=== PATIENT | male | born 1965 | race Caucasian/White ===

== ENCOUNTER 2018-08-15 15:34 | Inpatient (IN) ==
[2018-08-15] MEDS ORDERED: Naloxone 0.4 MG/ML INJ IVP PRN (17:28)
[2018-08-15] MEDS ORDERED: *HR* HYDROcodone/Acet 5/325 mg TABLET PO PRN (17:28)
[2018-08-15] MEDS ORDERED: D5% in Water 1,000 ML IVC PRN (17:30)
[2018-08-15] MEDS ORDERED: Dextrose Gel 15 GM/37.5 ML TUBE PO PRN ×2 (17:30)
[2018-08-15] MEDS ORDERED: *HR* Dextrose 50 % in Water (Syg) 50 ML SYRINGE IVP PRN (17:30)
[2018-08-15] MEDS ORDERED: Lisinopril 20 MG TABLET PO SCH (17:45)
--- NOTE | 2018-08-15 17:52 | Internal Med History&Physical ---
Date of Encounter: 08/15/18 Time of Encounter: 17:47 Internal Medicine - H&P: HPI Chief complaint: diabetic foot ulcer Admitted From: Home Plans for Post Hospital Care: Home History of present illness: Mr. 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 Patient presented to the hospital due to drainage from an infection on his right knee. The patient reports about 1 week about he developed a blister on the anterior aspect of the right knee. This blister has been growing in size during this period of time associated with pain, redness and warmth to touch. Report today the blister started to drain a bloody secretion and her decided to go to the ED to be checked. He denies fever, chills or trauma to the knee. He also report at the stump of the right foot he has seen a serous sanguineous secretion too. Denies chest pain, productive cough, nausea or vomiting. Past Med Surg Social Fam HX - Past Medical History Medical history: diabetes, hypertension Psychiatric history: depression - Past Surgical History Surgical History: no surgical history Additional surgical history: Right TMA. - Social History Smoking Status: Never smoker Smokeless Tobacco Status: No Alcohol use: none Drug use: none - Family History Mother Family Member Ethnicity: Non- Living Status: Hx Family Cardiac Disorders: No Hx Family Respiratory Disorders: No Hx Family Cancer: No Hx Family GI Disorders: No Hx Family Endocrine Disorder: Yes (DM) Hx Family Neuromuscular Disorders: No Hx Family Neurologic Disorders: No Hx Family HEENT Disorders: No Hx Family Autoimmune Disorders: No Father Living Status: Hx Family Cardiac Disorders: Yes (Stroke,HTN) Hx Family Respiratory Disorders: No Hx Family Cancer: No Hx Family GI Disorders: No Hx Family Endocrine Disorder: No Hx Family Neuromuscular Disorders: No Hx Family Neurologic Disorders: No Hx Family HEENT Disorders: No Hx Family Autoimmune Disorders: No Brother Hx Family Cancer: Yes (Skin CA) Internal Medicine - H&P: Meds Insulin ASPART [NovoLOG] 60 units SQ TID 01/13/15 [History] CloNIDine HCl [Kapvay] 0.1 mg PO DAILY 10/12/16 [History] Insulin Glargine,Hum.rec.anlog [Toujeo Solostar] 55 unit SQ DAILY 10/12/16 [History] Linagliptin [Tradjenta] 5 mg PO DAILY 10/12/16 [History] Lisinopril [Zestril] 20 mg PO DAILY #30 tablet 10/12/16 [Rx] Pioglitazone [Actos] 45 mg PO DAILY 10/12/16 [History] Allergy/AdvReac Type Severity Reaction Status Date / Time No Known Allergies Allergy Unverified 10/12/16 10:26 All Systems PM: A 10-system review of systems was performed and is negative for pertinent findings except as documented above in the HPI. - Constitutional Constitutional: no chills, no lethargy, no weakness - EENT Nose, mouth and throat: no dry mouth - Cardiovascular Cardiovascular ROS IM: no chest pain, no edema, no lightheadedness, no orthopnea, no palpitations - Respiratory Respiratory: no cough, no dyspnea on exertion, no pain on inspiration, no chest congestion - Gastrointestinal Gastrointestinal: no abdominal pain - Genitourinary Genitourinary ROS male: no dysuria, no nocturia - Musculoskeletal Musculoskeletal ROS IM: no arthralgias, no back pain - Integumentary Integumentary IM: erythema, non-healing lesions - Neurological Neurological ROS: no headache(s) - Psychiatric Psychiatric: no anxiety, no irritability - Endocrine Endocrine IM: no cold intolerance, no excessive sweating - Hematologic/Lymphatic Hematologic/Lymphatic: no lymphadenopathy - Allergic/Immunologic Allergic/Immunologic: no GI upset with certain foods - Constitutional Vitals: Temp Pulse Resp BP Pulse Ox 97.7 F 104 18 157/108 99 08/15/18 17:26 08/15/18 17:26 08/15/18 17:26 08/15/18 17:26 08/15/18 17:26 Exam: Vitals: Reviewed General: Alert and oriented x4. In mild distress due to pain on the right knee Cardiovascular: RRR, normal S1 & S2, no rubs, murmurs or gallops. Lungs: CTA b/l, no wheezes or crackles. Abdomen: soft, non-tender, no rigidity. Extremities: right foot amputation, erythema, edema, warmth and tenderness of the right knee. serous sanguineous secretion of the right foot stump. Neurological: No focal neurological abnormalities Rest of the physical exam is non contributory - Assessment and Plan (1) Abscess of skin or subcutaneous tissue Current Visit: No Status: Acute Assessment and plan: CT/CT knee RT w con IMPRESSION: 1. 4.5 x 2.8 x 2.8 cm fluid collection in the subcutaneous fat anterior to the patellar tendon and lower patellar pole compatible with an abscess. Small adjacent shallow soft tissue ulceration and subcutaneous fat stranding compatible with cellulitis. 2. No acute osseous abnormality or joint effusion. 3. Severe tricompartmental degenerative changes most pronounced in the patellofemoral compartment. Plan patient started on vancomycin per pharmacy dosing Podiatry consult for I&D. piperacillin/tazobactam 3.375mg/IV Q8hRs blood culture norco 5-325mg/PO 1 tab Q6HRs PRN for pain control Qualifiers: Site of cutaneous abscess: extremity Site of cutaneous abscess of extremity: lower extremity Laterality: right Qualified Code(s): L02.415 - Cutaneous abscess of right lower limb (2) Uncontrolled diabetes mellitus Current Visit: Yes Status: Chronic Assessment and plan: A1c of 14. patient started on a carb controlled diet. plus insulin short and long acting coverage NPO at midnight Qualifiers: Diabetes mellitus type: type 2 Glycemic state: with hyperglycemia Qualified Code(s): E11.65 - Type 2 diabetes mellitus with hyperglycemia (3) DVT prophylaxis Current Visit: Yes Status: Acute Assessment and plan: started on heparin subq. (4) Hypertension Current Visit: Yes Status: Chronic Assessment and plan: will resume patient home medications. on clonidine and lisinopril Qualifiers: Hypertension type: unspecified Qualified Code(s): I10 - Essential (primary) hypertension (5) Cellulitis Current Visit: No Status: Acute Assessment and plan: plan of care as per problem #1 Qualifiers: Site of cellulitis: extremity Site of cellulitis of extremity: lower extremity Laterality: right Qualified Code(s): L03.115 - Cellulitis of right lower limb (6) Diabetic foot ulcer Current Visit: No Status: Acute Assessment and plan: CT/CT foot RT w con IMPRESSION: 1. Plantar ulcer measuring 2.5 x 2.5 cm in the medial amputation stump. Adjacent edema compatible with cellulitis patient started on empiric antibiotics. Qualifiers: Diabetic foot ulcer location: midfoot Diabetes mellitus type: type 2 Laterality: right Non-pressure ulcer stage: with muscle involvement without evidence of necrosis Qualified Code(s): E11.621 - Type 2 diabetes mellitus with foot ulcer; L97.415 - Non-pressure chronic ulcer of right heel and midfoot with muscle involvement without evidence of necrosis - Time Spent With Patient Total time spent is greater than 50% in coordination of care (as documented) at patient's floor/unit and/or counseling patient: Greater than 35 minutes (45)
[2018-08-15] MEDS: cloNIDine HCl 0.1 MG TABLET PO SCH ×2 (18:06→20:16)
[2018-08-15] MEDS ORDERED: Insulin LISPRO 300 UNITS/3 ML VIAL SQ SCH (21:00)
[2018-08-15] MEDS ORDERED: Insulin DETEMIR 100 UNIT/ML X5UNITS SQ SCH (21:00)
[2018-08-15] MEDS: *HR* Heparin 5,000 UNIT/ML VIAL SQ SCH (21:19)
--- NOTE | 2018-08-15 22:11 | Orthopedic Consult Note ---
Date of Encounter: 08/15/18 Time of Encounter: 22:08 Assessment and Plan (1) Prepatellar bursitis of right knee Current Visit: Yes Status: Acute The patient has a septic prepatellar bursitis of the right knee. My recommendation is for operative incision, drainage, irrigation, and debridement of the right knee prepatellar bursa. Continue IV antibiotics per the hospitalist. Nothing by mouth after midnight. The risks discussed included but were not limited to stiffness, bleeding, infection, blood clots, damage to neurovascular structures, tendons, ligaments, and bone. Also discussed was the risk of continued symptoms and possible need for further procedures. I did discuss the anesthesia risks including stroke, heart attack, and . I did discuss the reasonable, foreseeable postoperative course with the patient. I have reviewed each of the pertinent components of this chart and any other pertinent medical component(s) including but not limited to pertinent application of the chief complaint, history of present illness, current medi cation, medical history, allergies, family history, medical history, surgical history, social history, review of systems, vital signs, and any other portion of the pertinent patient medical record directly or indirectly involved with this patient care that is pertinent based on my medical decision process. ZOEY Baca History of Present Illness HPI: Mr. Sierra is a 53 year old male currently admitted to the hospitalist with a prepatellar bursal infection. Symptoms started about a week ago when he began to notice a blister on the front of his knee. It began to worsen and he presented to the emergency department today where he was transferred to our facility for definitive treatment. The patient complains of sharp and achy pain localized to the anterior aspect of the knee. He has had a prior amputation through the mid foot/hindfoot and also has a plantar ulcer. He says this does not bother him. Symptoms are right knee are worse with any movement and better with rest. He denies any numbness, tingling, or any other associated signs or symptoms. No modifying factors otherwise. Past Med Surg Social Fam HX - Past Medical History Medical history: diabetes, hypertension Psychiatric history: depression - Past Surgical History Surgical History: no surgical history Additional surgical history: Right TMA. - Social History Smoking Status: Never smoker Smokeless Tobacco Status: No Alcohol use: none Drug use: none - Family History Mother Family Member Ethnicity: Non- Living Status: Hx Family Cardiac Disorders: No Hx Family Respiratory Disorders: No Hx Family Cancer: No Hx Family GI Disorders: No Hx Family Endocrine Disorder: Yes (DM) Hx Family Neuromuscular Disorders: No Hx Family Neurologic Disorders: No Hx Family HEENT Disorders: No Hx Family Autoimmune Disorders: No Father Living Status: Hx Family Cardiac Disorders: Yes (Stroke,HTN) Hx Family Respiratory Disorders: No Hx Family Cancer: No Hx Family GI Disorders: No Hx Family Endocrine Disorder: No Hx Family Neuromuscular Disorders: No Hx Family Neurologic Disorders: No Hx Family HEENT Disorders: No Hx Family Autoimmune Disorders: No Brother Hx Family Cancer: Yes (Skin CA) Medications and Allergies Insulin ASPART [NovoLOG] 60 units SQ TID 01/13/15 [History] CloNIDine HCl [Kapvay] 0.1 mg PO DAILY 10/12/16 [History] Insulin Glargine,Hum.rec.anlog [Toujeo Solostar] 55 unit SQ DAILY 10/12/16 [History] Linagliptin [Tradjenta] 5 mg PO DAILY 10/12/16 [History] Lisinopril [Zestril] 20 mg PO DAILY #30 tablet 10/12/16 [Rx] Pioglitazone [Actos] 45 mg PO DAILY 10/12/16 [History] Allergy/AdvReac Type Severity Reaction Status Date / Time No Known Allergies Allergy Unverified 10/12/16 10:26 All Systems Reviewed: Constitutional -The patient denies any fevers, chills, or feelings of illness Neurologic -The patient denies any numbness, tingling, or burning pains Physical Exam - Constitutional Vitals: Temp Pulse Resp BP Pulse Ox 98.0 F 97 17 154/98 97 08/15/18 18:34 08/15/18 18:34 08/15/18 18:34 08/15/18 18:34 08/15/18 18:34 CONSTITUTIONAL -Vitals reviewed -The patient is well developed, well nourished, well groomed PSYCHIATRIC -Fully alert and oriented -Pleasant mood RIGHT LOWER EXTREMITY Inspection shows that the knee has anterior swelling localized to the prepatellar bursa. There is a half centimeter area of drainage of grossly purulent material with surrounding induration. No palpable knee effusion. Generalized surrounding redness localized to the prepatellar region. No extension into the leg or the thigh. I can gently range the knee without significant pain in the knee joint itself but this does exacerbate the anterior knee pain in the prepatellar region. No pain with axial loading or locking of the right thigh. There is a 2.5 cm circular plantar ulcer with prior partial foot amputation. She can dorsi flex and plantarflex the ankle. Sensation of the residual foot is at baseline. Diagnostic Imaging: I did personally review and interpret CT scan of the right knee shows a prepatellar bursal fluid collection consistent with abscess. Surrounding cellulitis. CT scan of the foot does not show abscess but does demonstrate the ulcer. Results - Labs Labs: All other labs normal. Consult Discharge Plan - Plan Referrals: Bryant Lawrence DO [Primary Care Provider] -
[2018-08-15] MEDS: Piperacillin/Tazobactam 3.375 GM in 0.9 % Sodium Chloride Mini Bag 100 ML IVPB SCH (22:55)
[2018-08-16] MEDS: Piperacillin/Tazobactam 3.375 GM in 0.9 % Sodium Chloride Mini Bag 100 ML IVPB SCH ×3 (05:50→22:40)
[2018-08-16] MEDS: *HR* Heparin 5,000 UNIT/ML VIAL SQ SCH ×3 (05:51→22:41)
[2018-08-16 06:09] LABS: Basophils # 0.1 K/mcL (0.0-0.2); Basophils % 0.8 %; Eosinophils # 0.2 K/mcL (0.0-0.6); Eosinophils % 2.3 %; Hematocrit 36.9 % (37.5-50.1); Hemoglobin 12.3 g/dL (12.9-16.9); Immature Granulocytes % 0.4 % (0-4); Lymphocytes # 1.6 K/mcL (0.6-4.6); Lymphocytes % 19.5 %; Mean Corpuscular HGB Conc 33.3 g/dL (31.6-35.5); Mean Corpuscular Hemoglobin 28.3 pg (28.0-33.3); Mean Corpuscular Volume 84.8 fL (83.0-100.0); Mean Platelet Volume 11.3 fL (9.4-12.4); Monocytes # 0.7 K/mcL (0.0-1.3); Monocytes % 8.1 %; Neutrophils # 5.5 K/mcL (1.6-8.9); Platelet Count 273 K/mcL (140-400); Red Blood Count 4.35 M/mcL (4.19-5.50); Segmented Neutrophils % 68.9 %
[2018-08-16 06:21] LABS: BUN/Creatinine Ratio 17 (6-26); Blood Urea Nitrogen 15 mg/dL (6-20); Calcium 8.5 mg/dL (8.6-10.3); Carbon Dioxide 23 mEq/L (23-29); Chloride 102 mEq/L (98-107); Glucose 337 mg/dL (70-105); Magnesium 1.7 mg/dL (1.6-2.6); Osmolality,Calculated 290 (280-300); Phosphorous 3.3 mg/dL (2.7-4.5); Potassium 3.9 mEq/L (3.5-5.1); Sodium 133 mEq/L (136-145); eGFR For African Americans > 60 (> 60); eGFR For Non-African Americans > 60 (> 60)
[2018-08-16 06:31] LABS: INR 1.1; Prothrombin Time 12.5 Seconds (9.4-12.1)
[2018-08-16] MEDS ORDERED: *HR* FentaNYL (PF) 100 MCG/2 ML VIAL ONE (07:02)
[2018-08-16] MEDS ORDERED: *HR* Midazolam HCl 2 MG/2 ML VIAL ONE (07:02)
[2018-08-16] MEDS ORDERED: *HR* Propofol 200 MG/20 ML VIAL IVP ONE (07:02)
[2018-08-16] MEDS ORDERED: *HR* Succinylcholine 200 MG/10 ML VIAL IVP ONE (07:08)
[2018-08-16] MEDS ORDERED: Lidocaine -MPF 4% 5 ML AMPUL ONE (07:08)
[2018-08-16] MEDS ORDERED: Lidocaine -MPF 2% 2 ML VIAL ONE (07:08)
[2018-08-16] MEDS ORDERED: Ondansetron 4 MG/2 ML VIAL ONE (07:08)
--- NOTE | 2018-08-16 07:19 | Anesthesia Evaluation PreOp ---
Date of Encounter: 08/16/18 Time of Encounter: 07:17 - Past History Planned Operation: I & D R knee Cardiac History: HTN Pulmonary History: Denies Any Significant HX SUB ARC OPERATOR History: Other (depression) Other Medical History: Diabetes Type II (poorly controlled, last HgbA1c 14.7) Anesthesia History: No Prior Anesthetic Complications, Past Anesthesia (R transmetatarsal ampuation) Alcohol Use: none Drug use: none Medications and Allergies Insulin ASPART [NovoLOG] 60 units SQ TID 01/13/15 [History] CloNIDine HCl [Kapvay] 0.1 mg PO DAILY 10/12/16 [History] Insulin Glargine,Hum.rec.anlog [Toujeo Solostar] 55 unit SQ DAILY 10/12/16 [History] Linagliptin [Tradjenta] 5 mg PO DAILY 10/12/16 [History] Lisinopril [Zestril] 20 mg PO DAILY #30 tablet 10/12/16 [Rx] Pioglitazone [Actos] 45 mg PO DAILY 10/12/16 [History] Allergy/AdvReac Type Severity Reaction Status Date / Time No Known Allergies Allergy Unverified 10/12/16 10:26 - Meds/Allergy Pre-op Review Medications Reviewed: Yes Allergies Reviewed: Yes Beta Blockers on Current Med List: No Anesthesia Results - Labs 08/16/18 05:15 08/16/18 05:15 Laboratory Tests 08/16/18 08/16/18 05:15 05:15 PT 12.5 H INR 1.1 APTT 28.0 Glucose 337 H - Imaging Additional studies: ECHO 07/15/15 Impressions: LVEF 60%. Normal left ventricular size and systolic function. Mild concentric hypertrophy of the left ventricle. There is evidence of mild diastolic dysfunction of the left ventricle. Normal right ventricular size and function. No significant valvular dysfunction. Lack of significant TR gradient to estimate RVSP. IVC is not well visualized. Hypertensive during study (215/150 mmHg). stress test 2014 Impression: Perfusion imaging was negative for ischemia or infarct. Pharmacologic ECG was negative for ischemia at the level of heart rate achieved. Patient had no chest pain with stress. Normal hemodynamic response. No arrhythmias noted with stress. Gated EF = 51%. The LV is dilated. LVEDV = 167 There is no evidence of TID. Anesthesia Exam Vital Signs/O2 Sat, Most Current Temp Pulse Resp BP Pulse Ox 98.8 F 79 16 130/84 99 08/16/18 06:30 08/16/18 06:30 08/16/18 06:30 08/16/18 06:30 08/16/18 06:30 Weight: 120kg NPO (# of Hours): >8 - HEENT Pupil (Motor): Pupils equal, EOMI Teeth: Poor dentition Oral Opening: Greater than 3 - SUB ARC OPERATOR LOC: Oriented SUB ARC OPERATOR Motor: Normal RUE, Normal LUE, Normal RLE, Normal LLE, Normal Face SUB ARC OPERATOR Sensory: Normal: RUE, LUE, RLE, LLE, Face - Cardiac Rhythm: Regular - Pulmonary Breath Sounds: bilateral Clear Respiratory Effort: Symmetrical Anesthesia Assess/Plan ASA Score: 3 (HTN, DM, depression) Level of consciousness: Cooperative Anesthetic Plan: General Monitoring Plan: Standard Monitors Recovery Plan: PACU
[2018-08-16] MEDS ORDERED: *HR* OxyCODONE Immed Rel 5 MG TABLET PO PRN ×2 (07:21→09:44)
[2018-08-16] MEDS ORDERED: *HR* HYDROmorphone (PF) 1 MG/ML SYRINGE IVP PRN ×2 (07:21→09:44)
[2018-08-16] MEDS ORDERED: *HR* Promethazine 25 MG/ML VIAL IVP PRN ×2 (07:21→09:44)
[2018-08-16] MEDS ORDERED: Ondansetron 4 MG/2 ML VIAL IVP ONE (07:21)
[2018-08-16] MEDS ORDERED: Insulin LISPRO 300 UNITS/3 ML VIAL SQ SCH ×2 (07:30→17:00)
[2018-08-16] MEDS ORDERED: Ringers Solution, Lactated 1,000 ML IVC SCH ×2 (07:30→09:44)
[2018-08-16] MEDS ORDERED: Bupivacaine/EPI 1:200k 0.5%PF 30 ML VIAL ONE (07:59)
--- NOTE | 2018-08-16 08:17 | Event Note ---
Date of Encounter: 08/16/18 Time of Encounter: 07:15 went to see patient. he is in the OR.
[2018-08-16] MEDS ORDERED: *HR* PHENYLEPHRINE 1,000 MCG/10 ML SYRINGE IVP ONE (08:36)
--- NOTE | 2018-08-16 09:12 | Orthopedic Operative Note ---
Date of procedure: 08/16/18 Procedure: OPERATIVE REPORT SURGEON: Pablito Martell MD PREOPERATIVE DIAGNOSIS: Right septic prepatellar bursitis POSTOPERATIVE DIAGNOSIS: Right septic prepatellar bursitis PROCEDURE: Incision, drainage, irrigation, and debridement of the right prepatellar bursa ANESTHESIA: Gen. anesthesia SPECIMENS: Aerobic and anaerobic cultures PREOPERATIVE NOTE The surgical plan was reviewed with the patient. The risks, benefits, alternatives, and potential complications of this procedure were discussed with the patient including injury to veins, arteries, nerves, tendons, ligaments, and bone. Also discussed were the risks of infection, bleeding, pain, blood clots, the possible need for a blood transfusion, the possible need for further procedures, heart attack, stroke, and . Additional risks include continued symptoms despite surgery and the need for further debridements. All of this was explained in simple terms, and the patient verbalized understanding and wished to proceed. Consent was given to proceed with surgery. PROCEDURE: The patient was seen in the preoperative holding area where the identify and the consent were confirmed. The right knee was marked. Final questions were answered. The patient was brought back to the operating room and placed supine on the operating room table. A huddle was performed with the patient and all vital surgical team members confirming patient identity, the correct procedure, and the correct operative site. General anesthesia was administered. The operative extremity was prepped and draped in the usual sterile fashion. A surgical time out was performed immediately preceding the incision with all personnel in the operating room to confirm patient identity, the correct operative site and extremity, correct radiographic studies, availability of appropriate surgical equipment, and agreement on the planned procedure. The tourniquet was inflated without exsanguination. Longitudinal incision was made over the area of ulceration. The skin was very thick and indurated by about 1 cm. At that point penetration into the bursa was performed and this drained copious amounts of grossly purulent material. This was swabbed for culture. The wound was copiously irrigated. There was a moderate amount of necrotic fat along the area of ulceration which was sharply debrided. The bursa was debrided with a rongoeur along the anterior portion of the abscess. A total of 3 L was flushed through the wound and at that point all necrotic material and purulence had been removed and the wound bed was clean. The wound was loosely closed to allow for drainage and packed open through the ulceration site with half-inch iodoform packing. A soft, sterile dressing was applied. The instrument, sponge, and needle counts were correct after wound closure. POST OPERATIVE PLAN: Daily dressing changes and packing changes. Was there an banking assistant present: No Estimated blood loss (cc): 1
[2018-08-16] MEDS ORDERED: *HR* Dextrose 50 % in Water (Syg) 50 ML SYRINGE IVP PRN (09:44)
[2018-08-16] MEDS ORDERED: D5% in Water 1,000 ML IVC PRN (09:44)
[2018-08-16] MEDS ORDERED: Dextrose Gel 15 GM/37.5 ML TUBE PO PRN ×2 (09:44)
[2018-08-16] MEDS ORDERED: *HR* HYDROcodone/Acet 5/325 mg TABLET PO PRN (09:44)
[2018-08-16] MEDS ORDERED: Naloxone 0.4 MG/ML INJ IVP PRN (09:44)
--- NOTE | 2018-08-16 10:33 | Anesthesia Evaluation Post Op ---
Date of Encounter: 08/16/18 Time of Encounter: 10:32 - Vital Signs Vital Signs: Vital Signs/O2 Sat, Most Current Temp Pulse Resp BP Pulse Ox 97.6 F 75 17 133/81 94 08/16/18 09:54 08/16/18 09:54 08/16/18 09:54 08/16/18 09:54 08/16/18 09:54 - Lungs Lungs: Clear Ascult./Percussion - Airway Airway: Non-obstructed - Cardiovascular Regular Rate - Mental Status Mental Status: Alert & Oriented, Answers Appropriately - Pain Pain Scale: 0 Pain Scale used: Numeric (1 - 10) - Nausea Vomiting Nausea Vomiting: Not Present - Hydration Hydration: Tolerates oral liquids - Discharge PostOp Status: Transfer Patient to floor
[2018-08-16 10:38] LABS: C-Reactive Protein 46 mg/L (Less than 10)
[2018-08-16] MEDS: Insulin LISPRO 300 UNITS/3 ML VIAL SQ SCH ×3 (12:45→20:59)
--- NOTE | 2018-08-16 13:57 | Internal Med Progress Note ---
Hospitalist Progress Note - Encounter Date of Encounter: 08/16/18 Time of Encounter: 13:55 - Subjective Interval History: I have seen and evaluated the patient at bedside. patient reports doing well. he denies chest pain, short of breath or knee pain. denies abdominal pain or loose stool - Exam Vitals: Temp Pulse Resp BP Pulse Ox 98.1 F 85 16 136/77 95 08/16/18 12:55 08/16/18 12:55 08/16/18 12:55 08/16/18 12:55 08/16/18 12:55 Exam: Vitals: Reviewed General: Alert and oriented x4. No distress Cardiovascular: RRR, normal S1 & S2, no rubs, murmurs or gallops. Lungs: CTA b/l, no wheezes or crackles. Abdomen: soft, non-tender, no rigidity. Extremities:clean surgical dressing on the right knee Neurological: No focal neurological abnormalities Rest of the physical exam is non contributory - Assessment and Plan (1) Prepatellar bursitis of right knee Current Visit: Yes Status: Acute Assessment and Plan: s/p I&D. Continue broad-spectrum IV antibiotics. Wound culture. On [place] 5- 325mg/Po 1tab Q4HR PRN for pain control. Orthopedic recommendation appreciated. (2) Uncontrolled diabetes mellitus Current Visit: Yes Status: Chronic Assessment and Plan: Patient reports not taking any medication for a couple of months. Blood sugar suboptimally controlled. Increase Levemir to 15 units twice a day, lispro 5 units before meals plus medium dose sliding scale. Carb controlled diet. (3) Hypertension Current Visit: Yes Status: Chronic Assessment and Plan: Blood pressures well controlled. Discontinue clonidine due to patient noncompliance. To avoid rebound hypertension. Amlodipine 10 mg by mouth daily. Continue lisinopril 20 mg by mouth daily. (4) Cellulitis Current Visit: No Status: Acute Assessment and Plan: Plan of care as per problem #1. (5) Diabetic foot ulcer Current Visit: No Status: Acute Assessment and Plan: Podiatry consulted, recommendation appreciated. Patient on broad-spectrum antibiotic. DVT Prophylaxis: Heparin subcutaneous. - Summary of Assessment and Plan Summary of Assessment and Plan: Patient to remain in the hospital broad-spectrum antibiotics. - Time Spent with Patient Total time spent is greater than 50% in coordination of care (as documented) at patient's floor/unit and/or counseling patient: Greater than 35 minutes (40) Plan of Care Discussed with: patient (and the nurse) Internal Medicine: Result - Labs CBC & Chem 7: 08/16/18 05:15 08/16/18 05:15 Labs: Short CBC 08/16/18 Range/Units 05:15 WBC 8.0 (4.3-11.1) K/mcL Hgb 12.3 L (12.9-16.9) g/dL Hct 36.9 L (37.5-50.1) % Plt Count 273 (140-400) K/mcL Neutrophils # 5.5 (1.6-8.9) K/mcL BMP 08/16/18 05:15 Sodium 133 L Potassium 3.9 Chloride 102 Carbon Dioxide 23 BUN 15 Creatinine 0.88 Glucose 337 H Calcium 8.5 L - ABG Interpretation ABG results: PT/INR, D-dimer PT 12.5 Seconds (9.4-12.1) H 08/16/18 05:15 Consult Discharge Plan - Plan Referrals: Bryant Lawrence DO [Primary Care Provider] - (2) Uncontrolled diabetes mellitus Qualifiers: Diabetes mellitus type: type 2 Glycemic state: with hyperglycemia Qualified Code(s): E11.65 - Type 2 diabetes mellitus with hyperglycemia (3) Hypertension Qualifiers: Hypertension type: unspecified Qualified Code(s): I10 - Essential (primary) hypertension (4) Cellulitis Qualifiers: Site of cellulitis: extremity Site of cellulitis of extremity: lower extremity Laterality: right Qualified Code(s): L03.115 - Cellulitis of right lower limb (5) Diabetic foot ulcer Qualifiers: Diabetic foot ulcer location: midfoot Diabetes mellitus type: type 2 Laterality: right Non-pressure ulcer stage: with muscle involvement without evidence of necrosis Qualified Code(s): E11.621 - Type 2 diabetes mellitus with foot ulcer; L97.415 - Non-pressure chronic ulcer of right heel and midfoot with muscle involvement without evidence of necrosis
[2018-08-16] MEDS ORDERED: cloNIDine HCl 0.1 MG TABLET PO SCH (15:00)
[2018-08-16] MEDS ORDERED: Piperacillin/Tazobactam 3.375 GM in 0.9 % Sodium Chloride Mini Bag 100 ML IVPB SCH (18:00)
[2018-08-16] MEDS ORDERED: Insulin DETEMIR 100 UNIT/ML X5UNITS SQ SCH ×2 (21:00)
[2018-08-17] MEDS: Piperacillin/Tazobactam 3.375 GM in 0.9 % Sodium Chloride Mini Bag 100 ML IVPB SCH ×3 (06:09→22:11)
[2018-08-17] MEDS: *HR* Heparin 5,000 UNIT/ML VIAL SQ SCH ×3 (06:10→22:01)
[2018-08-17 08:39] LABS: Basophils # 0.1 K/mcL (0.0-0.2); Basophils % 0.8 %; Eosinophils # 0.2 K/mcL (0.0-0.6); Eosinophils % 1.9 %; Hematocrit 37.1 % (37.5-50.1); Hemoglobin 12.2 g/dL (12.9-16.9); Immature Granulocytes % 0.4 % (0-4); Lymphocytes # 1.4 K/mcL (0.6-4.6); Lymphocytes % 17.3 %; Mean Corpuscular HGB Conc 32.9 g/dL (31.6-35.5); Mean Corpuscular Hemoglobin 28.1 pg (28.0-33.3); Mean Corpuscular Volume 85.5 fL (83.0-100.0); Mean Platelet Volume 10.8 fL (9.4-12.4); Monocytes # 0.7 K/mcL (0.0-1.3); Monocytes % 9.2 %; Neutrophils # 5.5 K/mcL (1.6-8.9); Platelet Count 256 K/mcL (140-400); Red Blood Count 4.34 M/mcL (4.19-5.50); Red Cell Distribution Width 13.1 % (11.5-14.5); Segmented Neutrophils % 70.4 %; White Blood Count 7.8 K/mcL (4.3-11.1)
[2018-08-17 08:59] LABS: Calcium 8.3 mg/dL (8.6-10.3); Magnesium 1.7 mg/dL (1.6-2.6); Potassium 4.1 mEq/L (3.5-5.1)
[2018-08-17] MEDS ORDERED: Lisinopril 20 MG TABLET PO SCH ×2 (09:00)
--- NOTE | 2018-08-17 09:00 | Internal Med Progress Note ---
Hospitalist Progress Note - Encounter Date of Encounter: 08/17/18 Time of Encounter: 08:56 - Subjective Interval History: Seen and evaluated the patient at bedside. Patient reports doing okay, denies chest pain, shortness of breath or knee pain. denies diarrhea or loose stool - Exam Vitals: Temp Pulse Resp BP Pulse Ox 98.2 F 77 18 165/101 94 08/17/18 06:53 08/17/18 06:53 08/17/18 06:53 08/17/18 06:53 08/17/18 06:53 Exam: Vitals: Reviewed General: Alert and oriented x4. No distress Cardiovascular: RRR, normal S1 & S2, no rubs, murmurs or gallops. Lungs: CTA b/l, no wheezes or crackles. Abdomen: soft, non-tender, no rigidity. NABS in all 4 quadrants Extremities:clean surgical dressing on the right knee Neurological: No focal neurological abnormalities Rest of the physical exam is non contributory - Assessment and Plan (1) Prepatellar bursitis of right knee Current Visit: Yes Status: Acute Assessment and Plan: s/p I&D. fluid culture: bacteria observed, gram positive cocci. preliminary report will continue piperacillin/tazobactam 3.375mg/IV Q8HRs and vancomycin per pharmacy protocol. will adjust antibiotics based on sensitivity and specificity (2) Uncontrolled diabetes mellitus Current Visit: Yes Status: Chronic Assessment and Plan: Blood sugar suboptimally controlled. Increase Tenormin to 20 units twice a day. lispro to 8 units before meals. continue carbs controlled diet (3) Hypertension Current Visit: Yes Status: Chronic Assessment and Plan: Blood pressures optimally controlled. Continue amlodipine 10 mg by mouth daily, hydralazine 50 mg by mouth every 8 hours added (4) Cellulitis Current Visit: No Status: Acute Assessment and Plan: plan of care as per problem #1 (5) Diabetic foot ulcer Current Visit: No Status: Acute Assessment and Plan: podiatry consulted. continue broad spectrum IV antibiotics wound care tight glycemic control (6) ROXANN (acute kidney injury) Current Visit: Yes Status: Acute Assessment and Plan: possible secondary to supra-therapeutic vancomycin will hold vancomycin dose today. started on IV hydration with 0.45NS@100ml/hr discontinue lisinopril will reassess kidney function tomorrow morning (7) HLD (hyperlipidemia) Current Visit: Yes Status: Chronic Assessment and Plan: Continue atorvastatin 80 mg by mouth daily. (8) Nonadherence to medication Current Visit: Yes Status: Chronic Assessment and Plan: patient reported being off his medications for a couple of months DVT Prophylaxis: heparin subq - Summary of Assessment and Plan Summary of Assessment and Plan: patient to remain in the hospital due to ROXANN on IV antibiotics - Time Spent with Patient Total time spent is greater than 50% in coordination of care (as documented) at patient's floor/unit and/or counseling patient: Greater than 35 minutes (40) Plan of Care Discussed with: patient (and the nurse) Internal Medicine: Result - Labs CBC & Chem 7: 08/17/18 08:27 08/17/18 08:27 Labs: Short CBC 08/17/18 Range/Units 08:27 WBC 7.8 (4.3-11.1) K/mcL Hgb 12.2 L (12.9-16.9) g/dL Hct 37.1 L (37.5-50.1) % Plt Count 256 (140-400) K/mcL Neutrophils # 5.5 (1.6-8.9) K/mcL - ABG Interpretation ABG results: PT/INR, D-dimer PT 12.5 Seconds (9.4-12.1) H 08/16/18 05:15 Consult Discharge Plan - Plan Referrals: Bryant Lawrence DO [Primary Care Provider] - (2) Uncontrolled diabetes mellitus Qualifiers: Diabetes mellitus type: type 2 Glycemic state: with hyperglycemia Qualified Code(s): E11.65 - Type 2 diabetes mellitus with hyperglycemia (3) Hypertension Qualifiers: Hypertension type: unspecified Qualified Code(s): I10 - Essential (primary) hypertension (4) Cellulitis Qualifiers: Site of cellulitis: extremity Site of cellulitis of extremity: lower e xtremity Laterality: right Qualified Code(s): L03.115 - Cellulitis of right lower limb (5) Diabetic foot ulcer Qualifiers: Diabetic foot ulcer location: midfoot Diabetes mellitus type: type 2 Laterality: right Non-pressure ulcer stage: with muscle involvement without evidence of necrosis Qualified Code(s): E11.621 - Type 2 diabetes mellitus with foot ulcer; L97.415 - Non-pressure chronic ulcer of right heel and midfoot with muscle involvement without evidence of necrosis (7) HLD (hyperlipidemia) Qualifiers: Hyperlipidemia type: unspecified Qualified Code(s): E78.5 - Hyperlipidemia, unspecified
[2018-08-17] MEDS: amLODIPine 5 MG TABLET PO SCH (09:14)
[2018-08-17] MEDS: Insulin LISPRO 300 UNITS/3 ML VIAL SQ SCH ×6 (09:15→22:03)
--- NOTE | 2018-08-17 11:26 | Orthopedics Progress Note ---
Date of Encounter: 08/17/18 Time of Encounter: 11:24 - Assessment and Plan (1) Prepatellar bursitis of right knee Current Visit: Yes Status: Acute Subjective Interval history: S: Patient is seen today and has no complaints. O: Afebrile and vital signs are stable Operative extremity dressing is clean, dry, and intact. Neurovascularly intact distally Erythema has resolved No active purulence Cultures pending A: Post right knee prepatellar bursa incision and drainage P: Resume postoperative care IV antibiotics per the hospitalist Anticipation which oral tomorrow and discharge Daily dressing changes with packing changes. Objective Vital signs: Vital Signs Temp Pulse Resp BP Pulse Ox 08/17/18 11:14 98.0 F 77 16 155/85 96 08/17/18 06:53 98.2 F 77 18 165/101 94 08/17/18 04:37 98.1 F 79 18 161/85 94 08/17/18 00:24 98.2 F 61 18 162/85 93 08/16/18 20:54 98.6 F 91 18 166/89 93 08/16/18 15:41 98.5 F 83 17 158/90 96 08/16/18 12:55 98.1 F 85 16 136/77 95 08/16/18 11:55 97.8 F 85 17 132/87 97 Intake and Output 08/16/18 08/17/18 08/17/18 23:59 07:59 15:59 Intake Total 600 / 735.6 200 / 700 500 / 700 Output Total 200 / 605 0 / 0 Balance 400 / 130.6 200 / 700 500 / 700 Intake: IV Fluids 600 / 735.6 100 / 100 Zosyn 3.375 GM In 0.9 % Sodium 100 / 100 100 / 100 Chloride (Mini-Bag +) 100 ML @ 25 mls/hr IVPB Q8H [facility]T Rx#: [id number] Vancocin 1,750 MG In 0.9 % 500 / 500 Sodium Chloride 500 ML @ 333.3 mls/hr IVPB Q12H JANETT Rx#: [id number] Oral 0 / 0 100 / 600 500 / 600 Output: Urine 200 / 600 0 / 0 Other: Meal Breakfast Percent of Meal Consumed 100% # Voids 1 Weight 121.41 kg Blood Glucose* 125 312 319 Patient Weight 08/17/18 23:59 Weight 121.41 kg - Labs CBC & BMP: 08/17/18 08:27 08/17/18 08:27 Labs: Abnormal lab results Hgb 12.2 g/dL (12.9-16.9) L 08/17/18 08:27 Hct 37.1 % (37.5-50.1) L 08/17/18 08:27 ESR 62 mm/hr (0-10) H 08/16/18 05:15 PT 12.5 Seconds (9.4-12.1) H 08/16/18 05:15 Sodium 133 mEq/L (136-145) L 08/16/18 05:15 Carbon Dioxide 21 mEq/L (23-29) L 08/17/18 08:27 BUN 25 mg/dL (6-20) H 08/17/18 08:27 2.81 mg/dL (0.70-1.30) H 08/17/18 08:27 Est GFR ( Amer) 29 (> 60) L 08/17/18 08:27 Est GFR (Non-Af Amer) 24 (> 60) L 08/17/18 08:27 Glucose 227 mg/dL (70-105) H 08/17/18 08:27 POC Glucose 396 mg/dL (70-99) H 08/16/18 11:47 Calcium 8.3 mg/dL (8.6-10.3) L 08/17/18 08:27 46 mg/L (Less than 10) H 08/16/18 05:15 Vancomycin Trough 26 mcg/mL (5-10) H 08/17/18 07:55 Consult Discharge Plan - Plan Referrals: Bryant Lawrence DO [Primary Care Provider] -
--- NOTE | 2018-08-17 12:15 | Podiatry Consult Note ---
Date of Encounter: 08/18/18 Time of Encounter: 11:45 Assessment and Plan (1) Chronic ulcer of right foot with fat layer exposed Current visit: Yes Status: Acute Discussed with patient his condition and my findings. Discussed with patient wound looks stable. The discussed with patient is imperative that he control his blood sugar if wound is to heal. Discussed biomechanics and the equinus present and potential treatment options to try to mitigate some of the pressure through the midfoot. foot stable. will require wound care with alginate changed daily. f/u as outpatient. as outpatient may plan for achilles tendon legnthening. Podiatry will sign off he will follow-up as an outpatient. History of Present Illness HPI: Mr. Sierra is a 53 year old diabetic male who is admitted with a right knee infection underwent surgical I&D. Patient is known to me from [place] where we have been treating the wound on the bottom of his foot. Says he is not having any problems or changes with that. He has been doing the dressing changes at home and family has helped him. Past Med Surg Social Fam HX - Past Medical History Medical history: diabetes, hypertension Psychiatric history: depression - Past Surgical History Surgical History: no surgical history Additional surgical history: Right TMA. - Social History Smoking Status: Never smoker Smokeless Tobacco Status: No Alcohol use: none Drug use: none - Family History Mother Family Member Ethnicity: Non- Living Status: Hx Family Cardiac Disorders: No Hx Family Respiratory Disorders: No Hx Family Cancer: No Hx Family GI Disorders: No Hx Family Endocrine Disorder: Yes (DM) Hx Family Neuromuscular Disorders: No Hx Family Neurologic Disorders: No Hx Family HEENT Disorders: No Hx Family Autoimmune Disorders: No Father Living Status: Hx Family Cardiac Disorders: Yes (Stroke,HTN) Hx Family Respiratory Disorders: No Hx Family Cancer: No Hx Family GI Disorders: No Hx Family Endocrine Disorder: No Hx Family Neuromuscular Disorders: No Hx Family Neurologic Disorders: No Hx Family HEENT Disorders: No Hx Family Autoimmune Disorders: No Brother Hx Family Cancer: Yes (Skin CA) Medications and Allergies Amlodipine Besylate 10 mg PO DAILY 08/16/18 [History] Atorvastatin Calcium 80 mg PO DAILY 08/16/18 [History] Non-Formulary Medication 0 each PO DAILY 08/16/18 [History] Allergy/AdvReac Type Severity Reaction Status Date / Time No Known Allergies Allergy Unverified 10/12/16 10:26 All Systems Reviewed: The remainder of the systems were reviewed and are negative - Constitutional Constitutional: no fever(s) - Cardiovascular Cardiovascular: no chest pain, no dyspnea - Respiratory Respiratory: no cough - Musculoskeletal Musculoskeletal: no muscle weakness, no neck pain Physical Exam - Constitutional Vitals: Temp Pulse Resp BP Pulse Ox 98.0 F 77 16 155/85 96 08/17/18 11:14 08/17/18 11:14 08/17/18 11:14 08/17/18 11:14 08/17/18 11:14 General appearance: no acute distress, obese - Ankle & Foot Exam: Well-developed obese male in no acute distress Previous scop parts type amputation through midfoot with 2.5 cm x 2 cm x 0.4 cm wound on the plantar aspect of the foot does not probe to bone. There is no erythema. There is serous drainage. There is no purulence. Wound bases fibro- granular but mostly granular. Results - Labs Result Diagrams: 08/17/18 08:27 08/18/18 06:42 Labs: Abnormal lab results Hgb 12.2 g/dL (12.9-16.9) L 08/17/18 08:27 Hct 37.1 % (37.5-50.1) L 08/17/18 08:27 ESR 62 mm/hr (0-10) H 08/16/18 05:15 PT 12.5 Seconds (9.4-12.1) H 08/16/18 05:15 Sodium 133 mEq/L (136-145) L 08/16/18 05:15 Carbon Dioxide 21 mEq/L (23-29) L 08/17/18 08:27 BUN 25 mg/dL (6-20) H 08/17/18 08:27 2.81 mg/dL (0.70-1.30) H 08/17/18 08:27 Est GFR ( Amer) 29 (> 60) L 08/17/18 08:27 Est GFR (Non-Af Amer) 24 (> 60) L 08/17/18 08:27 Glucose 227 mg/dL (70-105) H 08/17/18 08:27 POC Glucose 396 mg/dL (70-99) H 08/16/18 11:47 Calcium 8.3 mg/dL (8.6-10.3) L 08/17/18 08:27 46 mg/L (Less than 10) H 08/16/18 05:15 Vancomycin Trough 26 mcg/mL (5-10) H 08/17/18 07:55 H & H 08/17/18 Range/Units 08:27 Hgb 12.2 L (12.9-16.9) g/dL Hct 37.1 L (37.5-50.1) % All other labs normal. Consult Discharge Plan - Plan Referrals: Bryant Lawrence DO [Primary Care Provider] -
[2018-08-17] MEDS: hydrALAZINE 25 MG TABLET PO SCH ×2 (17:19→23:49)
[2018-08-17] MEDS: Insulin DETEMIR 100 UNIT/ML X5UNITS SQ SCH (22:01)
[2018-08-18] MEDS: *HR* Heparin 5,000 UNIT/ML VIAL SQ SCH ×3 (06:23→22:25)
[2018-08-18] MEDS: Piperacillin/Tazobactam 3.375 GM in 0.9 % Sodium Chloride Mini Bag 100 ML IVPB SCH (06:24)
--- NOTE | 2018-08-18 07:44 | Orthopedics Progress Note ---
Date of Encounter: 08/18/18 Time of Encounter: 07:43 - Assessment and Plan (1) Prepatellar bursitis of right knee Current Visit: Yes Status: Acute Subjective Interval history: S: Patient is seen today and has no complaints. O: Afebrile and vital signs are stable Dressing and packing have been changed. Resolution of the erythema and improved swelling Neurovascularly intact distally Cultures growing Streptococcus aureus A: Post right knee prepatellar bursa incision and drainage P: Resume postoperative care I did teach the patient and discussed with the patient the performance of daily dressing changes and packing changes to the right knee Orthopedically stable for discharge on oral antibiotics Follow-up in one week for clinical reevaluation or sooner if needed. Objective Vital signs: Vital Signs Temp Pulse Resp BP Pulse Ox 08/18/18 06:53 97.8 F 72 16 161/99 98 08/18/18 04:16 97.6 F 78 17 166/86 98 08/18/18 00:22 96.7 F L 87 19 162/80 92 08/17/18 20:11 99.2 F 96 18 132/83 97 08/17/18 16:44 99.3 F 86 17 144/94 97 08/17/18 11:14 98.0 F 77 16 155/85 96 Intake and Output 08/17/18 08/17/18 08/18/18 15:59 23:59 07:59 Intake Total 600 / 1340 540 / 1340 1100 / 1100 Output Total 400 / 400 Balance 200 / 940 540 / 940 1100 / 1100 Intake: IV Fluids 100 / 300 100 / 300 1100 / 1100 0.45% Sodium Chloride 1000 Ml 1000 / 1000 1000 Ml 1,000 ML @ 100 mls/hr IVC .Q10H [facility] Rx#:[id number] Zosyn 3.375 GM In 0.9 % Sodium 100 / 300 100 / 300 100 / 100 Chloride (Mini-Bag +) 100 ML @ 25 mls/hr IVPB Q8H [facility] Rx#: [id number] Oral 500 / 1040 440 / 1040 Output: Urine 400 / 400 Other: Meal Breakfast Dinner Percent of Meal Consumed 100% 75% Blood Glucose* 319 274 223 - Labs CBC & BMP: 08/17/18 08:27 08/17/18 08:27 Labs: Abnormal lab results Hgb 12.2 g/dL (12.9-16.9) L 08/17/18 08:27 Hct 37.1 % (37.5-50.1) L 08/17/18 08:27 ESR 62 mm/hr (0-10) H 08/16/18 05:15 PT 12.5 Seconds (9.4-12.1) H 08/16/18 05:15 Sodium 133 mEq/L (136-145) L 08/16/18 05:15 Carbon Dioxide 21 mEq/L (23-29) L 08/17/18 08:27 BUN 25 mg/dL (6-20) H 08/17/18 08:27 2.81 mg/dL (0.70-1.30) H 08/17/18 08:27 Est GFR ( Amer) 29 (> 60) L 08/17/18 08:27 Est GFR (Non-Af Amer) 24 (> 60) L 08/17/18 08:27 Glucose 227 mg/dL (70-105) H 08/17/18 08:27 POC Glucose 319 mg/dL (70-99) H 08/17/18 11:13 Calcium 8.3 mg/dL (8.6-10.3) L 08/17/18 08:27 46 mg/L (Less than 10) H 08/16/18 05:15 Vancomycin Trough 26 mcg/mL (5-10) H 08/17/18 07:55 Consult Discharge Plan - Plan Referrals: Bryant Lawrence DO [Primary Care Provider] -
[2018-08-18 08:30] LABS: Calcium 8.7 mg/dL (8.6-10.3); Magnesium 1.9 mg/dL (1.6-2.6); Phosphorous 4.9 mg/dL (2.7-4.5)
[2018-08-18] MEDS ORDERED: Aminoglycoside Consult 1 EACH MC ONE (08:32)
[2018-08-18] MEDS: Insulin LISPRO 300 UNITS/3 ML VIAL SQ SCH ×7 (09:06→22:25)
[2018-08-18] MEDS: Insulin DETEMIR 100 UNIT/ML X5UNITS SQ SCH ×2 (09:07→22:32)
[2018-08-18] MEDS: amLODIPine 5 MG TABLET PO SCH (09:07)
[2018-08-18] MEDS: hydrALAZINE 25 MG TABLET PO SCH ×2 (09:07→16:56)
--- NOTE | 2018-08-18 09:10 | Internal Med Progress Note ---
Hospitalist Progress Note - Encounter Date of Encounter: 08/18/18 Time of Encounter: 09:08 - Subjective Interval History: I have seen and evaluated the patient at bedside. patient reports feeling well and expressed desire of being discharged today. I explained to the patient that we need to keep in the hospital for a couple more days to monitor kidney fu nction due to ROXANN. he is agreeable to stay. denies knee pain, nausea or vomiting. denies chest pain or abdominal pain. - Exam Vitals: Temp Pulse Resp BP Pulse Ox 97.8 F 72 16 161/99 98 08/18/18 06:53 08/18/18 06:53 08/18/18 06:53 08/18/18 06:53 08/18/18 06:53 Exam: Vitals: Reviewed General: Alert and oriented x4. No distress Cardiovascular: RRR, normal S1 & S2, no rubs, murmurs or gallops. Lungs: CTA b/l, no wheezes, rales or crackles. Abdomen: soft, non-tender, no rigidity. NABS in all 4 quadrants Extremities: no edema in the lower extr b/l. Neurological: No focal neurological abnormalities Rest of the physical exam is non contributory - Assessment and Plan (1) ROXANN (acute kidney injury) Current Visit: Yes Status: Acute Assessment and Plan: possible due to supra-therapeutic vancomucin level. vancomycin discontinued. continue IV hydration with LR @100 ml/hr. urine electrolyte. if renal function does not improve with IV hydration will consult nephrology. will re-assess kidney function tomorrow morning (2) Prepatellar bursitis of right knee Current Visit: Yes Status: Acute Assessment and Plan: s/p I&D. wound culture: staph aureous discontinue vancomycin due to worsening kidney function patient started on clindamycin 900mg/IV Q8HRs discontinue piperacillin/tazobactam (3) Cellulitis Current Visit: No Status: Acute Assessment and Plan: plan of care as above (4) Uncontrolled diabetes mellitus Current Visit: Yes Status: Chronic Assessment and Plan: Blood sugar suboptimally controlled. Increase levemir to 25 units twice a day. lispro to 9 units before meals. continue carbs controlled diet (5) Hypertension Current Visit: Yes Status: Chronic Assessment and Plan: BP is sub-optimally controlled. increase hydralazine to 100mg/PO TID , continue amlodipine 10mg/PO daily. (6) Diabetic foot ulcer Current Visit: No Status: Acute Assessment and Plan: System Validation Engineer evaluated the patient and recommended wound care with alginate changed daily. f/u as outpatient. (7) HLD (hyperlipidemia) Current Visit: Yes Status: Chronic Assessment and Plan: Atorvastatin 80 mg by mouth daily. (8) Nonadherence to medication Current Visit: Yes Status: Chronic DVT Prophylaxis: On heparin Subq - Summary of Assessment and Plan Summary of Assessment and Plan: patient to remain in the hospital ROXANN on IV hydration. wound culture: pending sensitivity and specificity - Time Spent with Patient Total time spent is greater than 50% in coordination of care (as documented) at patient's floor/unit and/or counseling patient: Greater than 35 minutes (40) Plan of Care Discussed with: patient (and the nurse.) Internal Medicine: Result - Labs CBC & Chem 7: 08/17/18 08:27 08/18/18 06:42 Labs: BMP 08/18/18 06:42 Sodium 137 Potassium 4.0 Chloride 104 Carbon Dioxide 20 L BUN 35 H Creatinine 3.26 H Glucose 228 H Calcium 8.7 - ABG Interpretation ABG results: PT/INR, D-dimer PT 12.5 Seconds (9.4-12.1) H 08/16/18 05:15 Consult Discharge Plan - Plan Referrals: Bryant Lawrence DO [Primary Care Provider] - (3) Cellulitis Qualifiers: Site of cellulitis: extremity Site of cellulitis of extremity: lower extremity Laterality: right Qualified Code(s): L03.115 - Cellulitis of right lower limb (4) Uncontrolled diabetes mellitus Qualifiers: Diabetes mellitus type: type 2 Glycemic state: with hyperglycemia Qualified Code(s): E11.65 - Type 2 diabetes mellitus with hyperglycemia (5) Hypertension Qualifiers: Hypertension type: unspecified Qualified Code(s): I10 - Essential (primary) hypertension (6) Diabetic foot ulcer Qualifiers: Diabetic foot ulcer location: midfoot Diabetes mellitus type: type 2 Laterality: right Non-pressure ulcer stage: with muscle involvement without evidence of necrosis Qualified Code(s): E11.621 - Type 2 diabetes mellitus with foot ulcer; L97.415 - Non-pressure chronic ulcer of right heel and midfoot with muscle involvement without evidence of necrosis (7) HLD (hyperlipidemia) Qualifiers: Hyperlipidemia type: unspecified Qualified Code(s): E78.5 - Hyperlipidemia, unspecified
[2018-08-18] MEDS ORDERED: Clindamycin 900 MG/50 ML 900 MG/50 ML IV.SOLN IVPB SCH (10:00)
[2018-08-18] MEDS: Ringers Solution, Lactated 1,000 ML IVC SCH ×2 (12:38→22:25)
[2018-08-18 13:23] LABS: Bilirubin,Urine Negative (Negative); Blood,Urine Negative (Negative); Clarity,Urine Clear (Clear); Color,Urine Yellow (Yellow); Glucose,Urine (UA) 250 mg/dL (Normal); Ketones,Urine Negative (Negative); Leukocyte Esterase,Urine Negative (Negative); Nitrite,Urine Negative (Negative); Protein,Urine 30 mg/dL (Neg-Trace); Specific Gravity,Urine 1.021 (1.010-1.025); Urobilinogen,Urine Normal (Normal)
[2018-08-18 13:24] LABS: Bacteria,Urine None Seen per hpf (None-Few); Hyaline Casts,Urine None Seen per lpf (None-Few); Squamous Epithelial Cell,Urine Moderate per lpf (None-Few); WBC,Urine 0-3 per hpf (0-3)
[2018-08-18 13:32] LABS: Potassium,Urine 21.1 mEq/L
[2018-08-18] MEDS: Clindamycin 900 MG/50 ML 900 MG/50 ML IV.SOLN IVPB SCH (22:30)
[2018-08-18] MEDS ORDERED: *HR* Metoprolol 5 MG/5 ML VIAL IVP ONE (23:08)
[2018-08-19] MEDS: hydrALAZINE 25 MG TABLET PO SCH ×3 (01:12→17:27)
[2018-08-19] MEDS: Clindamycin 900 MG/50 ML 900 MG/50 ML IV.SOLN IVPB SCH ×3 (05:36→20:22)
[2018-08-19] MEDS: *HR* Heparin 5,000 UNIT/ML VIAL SQ SCH ×3 (05:37→22:27)
[2018-08-19 06:32] LABS: Calcium 8.9 mg/dL (8.6-10.3); Magnesium 1.8 mg/dL (1.6-2.6); Phosphorous 4.9 mg/dL (2.7-4.5)
[2018-08-19] MEDS: Insulin LISPRO 300 UNITS/3 ML VIAL SQ SCH ×7 (09:15→21:49)
[2018-08-19] MEDS: amLODIPine 5 MG TABLET PO SCH (09:17)
[2018-08-19] MEDS: Ringers Solution, Lactated 1,000 ML IVC SCH ×2 (09:33→20:22)
[2018-08-19] MEDS: Insulin DETEMIR 100 UNIT/ML X5UNITS SQ SCH ×2 (09:36→21:56)
--- NOTE | 2018-08-19 12:10 | Internal Med Progress Note ---
Hospitalist Progress Note - Encounter Date of Encounter: 08/19/18 Time of Encounter: 12:08 - Subjective Interval History: I have seen and evaluated the patient at bedside. patient threatening with leaving AMA. patient educated about the importance of being compliant with the medical care and the treat that leaving the hospital could represent to worsenin g kidney function and possible requiring HD. patient denies chest pain, nausea, vomiting or abdominal pain. - Exam Vitals: Temp Pulse Resp BP Pulse Ox 97.6 F 99 18 137/71 96 08/19/18 11:29 08/19/18 11:29 08/19/18 11:29 08/19/18 11:29 08/19/18 11:29 Exam: Vitals: Reviewed General: Alert and oriented x4. No distress due stating he wants to leave ama. Cardiovascular: RRR, normal S1 & S2, no rubs, murmurs or gallops. Lungs: CTA b/l, no wheezes, rales or crackles. Abdomen: soft, non-tender, no rigidity. NABS in all 4 quadrants Extremities: no edema in the lower extr b/l. Neurological: No focal neurological abnormalities Rest of the physical exam is non contributory - Assessment and Plan (1) ROXANN (acute kidney injury) Current Visit: Yes Status: Acute Assessment and Plan: kidney function improving with IV hydration. continue LR @100 ml/hr. if kidney function does not continue to improve consider nephrology consult. (2) Prepatellar bursitis of right knee Current Visit: Yes Status: Acute Assessment and Plan: s/p I&D. wound culture: staph aureous, pending sensitivity. On clindamycin 900mg/IV Q8HRs (3) Cellulitis Current Visit: No Status: Acute Assessment and Plan: plan of care as above (4) Uncontrolled diabetes mellitus Current Visit: Yes Status: Chronic Assessment and Plan: blood sugar better controlled. continue current management of long and short acting insulin coverage. (5) Hypertension Current Visit: Yes Status: Chronic Assessment and Plan: BP well controlled. continue hydralazine to 100mg/PO TID and continue amlodipine 10mg/PO daily. (6) Diabetic foot ulcer Current Visit: No Status: Acute Assessment and Plan: [employer] Consultant evaluated the patient and recommended wound care with alginate changed daily. f/u as outpatient. (7) HLD (hyperlipidemia) Current Visit: Yes Status: Chronic Assessment and Plan: Atorvastatin 80 mg by mouth daily. (8) Nonadherence to medication Current Visit: Yes Status: Chronic DVT Prophylaxis: On heparin subcutaneous. - Summary of Assessment and Plan Summary of Assessment and Plan: Patient to remain in the hospital due to ROXANN. - Time Spent with Patient Total time spent is greater than 50% in coordination of care (as documented) at patient's floor/unit and/or counseling patient: Greater than 35 minutes (40) Plan of Care Discussed with: patient (and the nurse.) Internal Medicine: Result - Labs CBC & Chem 7: 08/17/18 08:27 08/19/18 05:52 Labs: BMP 08/19/18 05:52 Sodium 142 Potassium 4.0 Chloride 108 H Carbon Dioxide 23 BUN 36 H Creatinine 3.18 H Glucose 131 H Calcium 8.9 Urine 08/18/18 Range/Units 13:05 Urine Color Yellow (Yellow) Urine Clarity Clear (Clear) Urine pH 5.0 (5.0-8.0) pH Units Ur Specific Powell 1.021 (1.010-1.025) Urine Protein 30 H (Neg-Trace) mg/dL Urine Glucose (UA) 250 H (Normal) mg/dL - ABG Interpretation ABG results: PT/INR, D-dimer PT 12.5 Seconds (9.4-12.1) H 08/16/18 05:15 Consult Discharge Plan - Plan Referrals: Bryant Lawrence DO [Primary Care Provider] - __ (3) Cellulitis Qualifiers: Site of cellulitis: extremity Site of cellulitis of extremity: lower extremity Laterality: right Qualified Code(s): L03.115 - Cellulitis of right lower limb (4) Uncontrolled diabetes mellitus Qualifiers: Diabetes mellitus type: type 2 Glycemic state: with hyperglycemia Qualified Code(s): E11.65 - Type 2 diabetes mellitus with hyperglycemia (5) Hypertension Qualifiers: Hypertension type: unspecified Qualified Code(s): I10 - Essential (primary) hypertension (6) Diabetic foot ulcer Qualifiers: Diabetic foot ulcer location: midfoot Diabetes mellitus type: type 2 Lateral ity: right Non-pressure ulcer stage: with muscle involvement without evidence of necrosis Qualified Code(s): E11.621 - Type 2 diabetes mellitus with foot ulcer; L97.415 - Non-pressure chronic ulcer of right heel and midfoot with muscle involvement without evidence of necrosis (7) HLD (hyperlipidemia) Qualifiers: Hyperlipidemia type: unspecified Qualified Code(s): E78.5 - Hyperlipidemia, unspecified
[2018-08-20] MEDS: hydrALAZINE 25 MG TABLET PO SCH ×3 (00:14→17:54)
[2018-08-20] MEDS: Clindamycin 900 MG/50 ML 900 MG/50 ML IV.SOLN IVPB SCH ×3 (03:56→20:07)
[2018-08-20] MEDS: *HR* Heparin 5,000 UNIT/ML VIAL SQ SCH ×2 (06:30→14:20)
[2018-08-20] MEDS: Insulin DETEMIR 100 UNIT/ML X5UNITS SQ SCH ×2 (09:47→20:02)
[2018-08-20] MEDS: amLODIPine 5 MG TABLET PO SCH (09:48)
[2018-08-20] MEDS: Insulin LISPRO 300 UNITS/3 ML VIAL SQ SCH ×7 (09:48→20:03)
[2018-08-20] MEDS: Ringers Solution, Lactated 1,000 ML IVC SCH ×2 (09:56→20:02)
--- NOTE | 2018-08-20 13:20 | Internal Med Progress Note ---
Hospitalist Progress Note - Encounter Date of Encounter: 08/20/18 Time of Encounter: 14:18 - Subjective Interval History: No acute events. - Exam Vitals: Temp Pulse Resp BP Pulse Ox 97.6 F 103 18 130/83 99 08/20/18 11:45 08/20/18 11:45 08/20/18 11:45 08/20/18 11:45 08/20/18 11:45 Exam: General: Alert and oriented x4. No distress due stating he wants to leave ama. Head: NC, AT ENT: MMM Cardiovascular: RRR, normal S1 & S2, no rubs, murmurs or gallops. Lungs: CTA b/l, no wheezes, rales or crackles. Abdomen: soft, non-tender, no rigidity. normal bowel sounds Extremities: no edema in the lower extr b/l. Neurological: No focal neurological abnormalities - Assessment and Plan (1) ROXANN (acute kidney injury) Current Visit: Yes Status: Acute Assessment and Plan: kidney function improving with IV hydration, but still remains elevated. continue LR @100 ml/hr. UO noted for today. Creatinine slight improvement from 3.18 to 3.12 today. Suspect this is related to vancomycin but will have Nephrology consult and evaluate patient. (2) Prepatellar bursitis of right knee Current Visit: Yes Status: Acute Assessment and Plan: s/p I&D. wound culture: staph aureus, pending sensitivity. On clindamycin 900mg/IV Q8HRs Transition to PO on discharge. (3) Diabetic foot ulcer Current Visit: No Status: Acute Assessment and Plan: Licensed Optical Dispenser evaluated the patient and recommended wound care with alginate changed daily. Wound care consulted (4) Uncontrolled diabetes mellitus Current Visit: Yes Status: Chronic Assessment and Plan: Continue insulin sliding scale (5) Hypertension Current Visit: Yes Status: Chronic Assessment and Plan: Continue PO hydralazine to 100mg/PO TID and continue amlodipine 10mg/PO daily. (6) HLD (hyperlipidemia) Current Visit: Yes Status: Chronic Assessment and Plan: Atorvastatin 80 mg by mouth daily. (7) Nonadherence to medication Current Visit: Yes Status: Chronic Assessment and Plan: patient reported being off his medications for a couple of months - Time Spent with Patient Total time spent is greater than 50% in coordination of care (as documented) at patient's floor/unit and/or counseling patient: Internal Medicine: Result - Labs CBC & Chem 7: 08/17/18 08:27 08/20/18 12:22 - ABG Interpretation ABG results: PT/INR, D-dimer PT 12.5 Seconds (9.4-12.1) H 08/16/18 05:15 Consult Discharge Plan - Plan Referrals: Bryant Lawrence DO [Primary Care Provider] - (3) Diabetic foot ulcer Qualifiers: Diabetic foot ulcer location: midfoot Diabetes mellitus type: type 2 Laterality: right Non-pressure ulcer stage: with muscle involvement without evidence of necrosis Qualified Code(s): E11.621 - Type 2 diabetes mellitus with foot ulcer; L97.415 - Non-pressure chronic ulcer of right heel and midfoot with muscle involvement without evidence of necrosis (4) Uncontrolled diabetes mellitus Qualifiers: Diabetes mellitus type: type 2 Glycemic state: with hyperglycemia Qualified Code(s): E11.65 - Type 2 diabetes mellitus with hyperglycemia (5) Hypertension Qualifiers: Hypertension type: unspecified Qualified Code(s): I10 - Essential (primary) hypertension (6) HLD (hyperlipidemia) Qualifiers: Hyperlipidemia type: unspecified Qualified Code(s): E78.5 - Hyperlipidemia, unspecified
[2018-08-20 13:45] LABS: Calcium 9.6 mg/dL (8.6-10.3); Potassium 4.2 mEq/L (3.5-5.1)
[2018-08-21] MEDS: *HR* Heparin 5,000 UNIT/ML VIAL SQ SCH ×4 (01:07→22:07)
[2018-08-21] MEDS: hydrALAZINE 25 MG TABLET PO SCH ×3 (01:07→17:19)
--- NOTE | 2018-08-21 07:00 | Orthopedics Progress Note ---
Date of Encounter: 08/21/18 Time of Encounter: 06:59 - Assessment and Plan (1) Prepatellar bursitis of right knee Current Visit: Yes Status: Acute Subjective Interval history: S: Patient is seen today and has no complaints. O: Afebrile and vital signs are stable Dressing and packing have been changed. Resolution of the erythema and improved swelling Neurovascularly intact distally S. Aureus on culture. A: Post right knee prepatellar bursa incision and drainage P: Resume postoperative care I did teach the patient and discussed with the patient the performance of daily dressing changes and packing changes to the right knee Orthopedically stable for discharge on oral antibiotics Follow-up in one week for clinical reevaluation or sooner if needed. Objective Vital signs: Vital Signs Temp Pulse Resp BP Pulse Ox 08/20/18 22:50 98.3 F 99 18 153/82 95 08/20/18 19:05 97.6 F 105 17 172/87 95 08/20/18 15:20 97.6 F 96 18 141/69 97 08/20/18 11:45 97.6 F 103 18 130/83 99 Intake and Output 08/20/18 08/20/18 08/21/18 15:59 23:59 07:59 Intake Total 610 / 3780 1920 / 3780 Output Total 900 / 2200 800 / 2200 Balance -290 / 1580 1120 / 1580 Intake: IV Fluids 50 / 2100 1000 / 2100 Lactated Ringers 1,000 ML @ 100 1000 / 2000 mls/hr IVC .Q10H JANETT Rx#: [id number] Cleocin Premix 900 MG/50 ML 900 50 / 100 mg In 50 ml @ 50 mls/hr IVPB Q8H JANETT Rx#:[id number] Oral 560 / 1680 920 / 1680 Output: Urine 900 / 2200 800 / 2200 Other: Meal Lunch Dinner Percent of Meal Consumed 50% 100% Blood Glucose* 199 182 - Labs CBC & BMP: 08/17/18 08:27 08/20/18 12:22 Labs: Abnormal lab results Hgb 12.2 g/dL (12.9-16.9) L 08/17/18 08:27 Hct 37.1 % (37.5-50.1) L 08/17/18 08:27 ESR 62 mm/hr (0-10) H 08/16/18 05:15 PT 12.5 Seconds (9.4-12.1) H 08/16/18 05:15 Sodium 133 mEq/L (136-145) L 08/16/18 05:15 Chloride 108 mEq/L (98-107) H 08/19/18 05:52 Carbon Dioxide 20 mEq/L (23-29) L 08/18/18 06:42 BUN 32 mg/dL (6-20) H 08/20/18 12:22 3.12 mg/dL (0.70-1.30) H 08/20/18 12:22 Est GFR ( Amer) 25 (> 60) L 08/20/18 12:22 Est GFR (Non-Af Amer) 21 (> 60) L 08/20/18 12:22 Glucose 216 mg/dL (70-105) H 08/20/18 12:22 POC Glucose 141 mg/dL (70-99) H 08/19/18 20:02 303 (280-300) H 08/20/18 12:22 Calcium 8.3 mg/dL (8.6-10.3) L 08/17/18 08:27 Phosphorus 4.9 mg/dL (2.7-4.5) H 08/19/18 05:52 46 mg/L (Less than 10) H 08/16/18 05:15 30 mg/dL (Neg-Trace) H 08/18/18 13:05 250 mg/dL (Normal) H 08/18/18 13:05 3-5 per hpf (0-3) H 08/18/18 13:05 Ur Squamous Epith Cells Moderate per lpf (None-Few) H 08/18/18 13:05 Vancomycin Trough 26 mcg/mL (5-10) H 08/17/18 07:55 Consult Discharge Plan - Plan Referrals: Bryant Lawrence DO [Primary Care Provider] -
[2018-08-21 07:13] LABS: Calcium 8.9 mg/dL (8.6-10.3)
[2018-08-21] MEDS: Insulin LISPRO 300 UNITS/3 ML VIAL SQ SCH ×7 (07:42→22:08)
[2018-08-21] MEDS: Insulin DETEMIR 100 UNIT/ML X5UNITS SQ SCH ×2 (08:27→22:15)
[2018-08-21] MEDS: amLODIPine 5 MG TABLET PO SCH (08:27)
[2018-08-21] MEDS: Ringers Solution, Lactated 1,000 ML IVC SCH ×2 (08:37→22:16)
[2018-08-21] MEDS ORDERED: Clindamycin 900 MG/50 ML 900 MG/50 ML IV.SOLN IVPB SCH (09:00)
[2018-08-21] MEDS: Clindamycin 900 MG/50 ML 900 MG/50 ML IV.SOLN IVPB SCH ×2 (12:17→22:07)
--- NOTE | 2018-08-21 12:20 | Nephrology Consult Note ---
Date of Encounter: 08/21/18 Time of Encounter: 12:04 Assessment and Plan (1) ROXANN (acute kidney injury) Current Visit: Yes Status: Acute Patient has baseline stage II chronic kidney disease and now has acute kidney injury that is likely related to contrast-induced nephropathy along with vancomycin associated nephropathy. Fortunately he is not oliguric and his creatinine is at a plateau. I would anticipate that his renal function would start to improve within the next day or so. I will order a renal WORKUP including a renal ultrasound. I agree with continuing with maintenance IV to maintain a positive volume status for now. At the time my evaluation he does not need a renal biopsy and he does not need hemodialysis. I recommend avoiding unnecessary nephrotoxic agents. Adjust medications as needed for renal function. (2) Prepatellar bursitis of right knee Current Visit: Yes Status: Acute Status post incision and drainage. Per the primary team. (3) Hypertension Current Visit: Yes Status: Chronic Titrate the patient's blood pressure medication as needed. Once his renal function returns to baseline and he would benefit from a diuretic. Consider a beta morteza. Will start labetalol 100mg po bid. Qualifiers: Hypertension type: unspecified Qualified Code(s): I10 - Essential (primary) hypertension (4) Uncontrolled diabetes mellitus Current Visit: Yes Status: Chronic Patient needs control of his diabetes. He might benefit from an endocrinology evaluation on outpatient basis. Qualifiers: Diabetes mellitus type: type 2 Glycemic state: with hyperglycemia Qualified Code(s): E11.65 - Type 2 diabetes mellitus with hyperglycemia (5) Chronic kidney disease (CKD), stage II (mild) Current Visit: Yes Status: Acute Patient has persistent albuminuria that has been present for several years. His estimate GFR is greater than 60 and he likely has stage II chronic kidney disease most likely from uncontrolled diabetes and long-standing hypertension. (6) Low TSH level Current Visit: Yes Status: Acute Repeat level. if abnormal follow-up with pcp or refer to endocrinology as an outpatient. History of Present Illness - Reason for Consult Consult date: 08/21/18 Acute Kidney Injury - Chief Complaint ROXANN - History of Present Illness Mr. Sierra is a 53 -year-old man who presents secondary to what was thought to b e an abscess over his right knee. He is status post right knee I&D. He is feeling better, but is frustrated and wants to go home. He denies chest pain, shortness of breath, nausea, vomiting, or diarrhea. He denies NSAID use at home. He denies a family history of kidney disease. Past Med Surg Social Fam HX - Past Medical History Medical history: diabetes, hypertension Psychiatric history: depression - Past Surgical History Surgical History: no surgical history Additional surgical history: Right TMA. - Social History Smoking Status: Never smoker Smokeless Tobacco Status: No Alcohol use: none Drug use: none - Family History Mother Family Member Ethnicity: Non- Living Status: Hx Family Cardiac Disorders: No Hx Family Respiratory Disorders: No Hx Family Cancer: No Hx Family GI Disorders: No Hx Family Endocrine Disorder: Yes (DM) Hx Family Neuromuscular Disorders: No Hx Family Neurologic Disorders: No Hx Family HEENT Disorders: No Hx Family Autoimmune Disorders: No Father Living Status: Hx Family Cardiac Disorders: Yes (Stroke,HTN) Hx Family Respiratory Disorders: No Hx Family Cancer: No Hx Family GI Disorders: No Hx Family Endocrine Disorder: No Hx Family Neuromuscular Disorders: No Hx Family Neurologic Disorders: No Hx Family HEENT Disorders: No Hx Family Autoimmune Disorders: No Brother Hx Family Cancer: Yes (Skin CA) Medications and Allergies Amlodipine Besylate 10 mg PO DAILY 08/16/18 [History] Atorvastatin Calcium 80 mg PO DAILY 08/16/18 [History] Non-Formulary Medication 0 each PO DAILY 08/16/18 [History] Allergy/AdvReac Type Severity Reaction Status Date / Time No Known Allergies Allergy Unverified 10/12/16 10:26 Review of Systems All Systems: reviewed and no additional remarkable complaints except as stated (As documented in the history of present illness) Exam - Vital Signs Vital signs: Initial Vital Signs Temp Pulse Resp BP Pulse Ox 97.7 F 104 18 157/108 99 08/15/18 17:26 08/15/18 17:26 08/15/18 17:26 08/15/18 17:26 08/15/18 17:26 Vital Signs - Last 8 Hours Temp Pulse Resp BP Pulse Ox 08/21/18 10:54 98.1 F 104 18 141/75 97 08/21/18 07:07 98.1 F 98 19 164/86 94 Intake and Output 08/20/18 08/21/18 08/21/18 23:59 07:59 15:59 Intake Total 1920 / 3780 1000 / 1440 440 / 1440 Output Total 800 / 2200 400 / 400 Balance 1120 / 1580 1000 / 1040 40 / 1040 Intake: IV Fluids 1000 / 2100 1000 / 1000 Lactated Ringers 1,000 ML @ 100 1000 / 2000 1000 / 1000 mls/hr IVC .Q10H JANETT Rx#: [id number] Oral 920 / 1680 440 / 440 Output: Urine 800 / 2200 400 / 400 Other: Meal Dinner Breakfast Percent of Meal Consumed 100% 100% Blood Glucose* 182 105 - General Appearance General appearance: well-developed, well-nourished EENT: ATNC Neck: supple Respiratory: clear Cardiology: no edema Additional Comments: tachycardia Gastrointestinal: no tenderness Integumentary: warm and dry Neurologic: alert and oriented x3 Musculoskeletal: no cyanosis Psychiatric: mood/affect appropriate Results - Lab Results 08/17/18 08:27 08/21/18 05:55 Most recent lab results 08/21/18 05:55 Calcium 8.9 Consult Discharge Plan - Plan Referrals: Bryant Lawrence DO [Primary Care Provider] -
[2018-08-21 13:30] LABS: Bilirubin,Urine Negative (Negative); Blood,Urine Negative (Negative); Clarity,Urine Clear (Clear); Color,Urine Yellow (Yellow); Glucose,Urine (UA) Normal (Normal); Ketones,Urine Negative (Negative); Leukocyte Esterase,Urine Negative (Negative); Nitrite,Urine Negative (Negative); PH,Urine 5.5 pH Units (5.0-8.0); Protein,Urine Trace mg/dL (Neg-Trace); Specific Gravity,Urine 1.012 (1.010-1.025); Urobilinogen,Urine Normal (Normal)
[2018-08-21 13:37] LABS: Protein/Creatinine Ratio,Urine 0.4 mg/mg (0.00-0.20)
--- NOTE | 2018-08-21 13:49 | Internal Med Progress Note ---
Hospitalist Progress Note - Encounter Date of Encounter: 08/21/18 Time of Encounter: 13:47 - Subjective Interval History: No acute events, no complaints. - Exam Vitals: Temp Pulse Resp BP Pulse Ox 98.1 F 104 18 141/75 97 08/21/18 10:54 08/21/18 10:54 08/21/18 10:54 08/21/18 10:54 08/21/18 10:54 Exam: General: Alert and oriented, no acute distres Head: NC, AT ENT: MMM Cardiovascular: RRR, normal S1 & S2, no rubs, murmurs or gallops. Lungs: CTA b/l, no wheezes, rales or crackles. Abdomen: soft, non-tender, no rigidity. normal bowel sounds Extremities: no edema in the lower extr b/l. Neurological: No focal neurological abnormalities - Assessment and Plan (1) ROXANN (acute kidney injury) Current Visit: Yes Status: Acute Assessment and Plan: kidney function improving with IV hydration, but still remains elevated. continue LR @100 ml/hr. UO noted for today. Creatinine continues to show slight improvement from 3.18 to 3.12 to 3.04. Suspect this is related to vancomycin and contrast. Nephrology consulted, labs and renal ultrasound pending. (2) Prepatellar bursitis of right knee Current Visit: Yes Status: Acute Assessment and Plan: s/p I&D. wound culture: staph aureus, pending sensitivity. On clindamycin 900mg/IV Q8HRs Transition to PO on discharge. Stable. (3) Diabetic foot ulcer Current Visit: No Status: Acute Assessment and Plan: [facility] [employer] Guide evaluated the patient and recommended wound care with alginate changed daily. Wound care conulted (4) Uncontrolled diabetes mellitus Current Visit: Yes Status: Chronic Assessment and Plan: Continue insulin sliding scale (5) Hypertension Current Visit: Yes Status: Chronic Assessment and Plan: Continue PO hydralazine to 100mg/PO TID and continue amlodipine 10mg/PO daily. (6) HLD (hyperlipidemia) Current Visit: Yes Status: Chronic Assessment and Plan: Atorvastatin 80 mg by mouth daily. (7) Nonadherence to medication Current Visit: Yes Status: Chronic Assessment and Plan: patient reported being off his medications for a couple of months - Time Spent with Patient Total time spent is greater than 50% in coordination of care (as documented) at patient's floor/unit and/or counseling patient: Internal Medicine: Result - Labs CBC & Chem 7: 08/17/18 08:27 08/21/18 05:55 Labs: BMP 08/21/18 05:55 Sodium 142 Potassium 4.0 Chloride 105 Carbon Dioxide 25 BUN 29 H Creatinine 3.04 H Glucose 110 H Calcium 8.9 Urine 08/21/18 Range/Units 13:15 Urine Color Yellow (Yellow) Urine Clarity Clear (Clear) Urine pH 5.5 (5.0-8.0) pH Units Ur Specific [place] 1.012 (1.010-1.025) Urine Protein Trace (Neg-Trace) mg/dL Urine Glucose (UA) Normal (Normal) mg/dL - ABG Interpretation ABG results: PT/INR, D-dimer PT 12.5 Seconds (9.4-12.1) H 08/16/18 05:15 Consult Discharge Plan - Plan Referrals: Bryant Lawrence DO [Primary Care Provider] - (3) Diabetic foot ulcer Qualifiers: Diabetic foot ulcer location: midfoot Diabetes mellitus type: type 2 Laterality: right Non-pressure ulcer stage: with muscle involvement without evidence of necrosis Qualified Code(s): E11.621 - Type 2 diabetes mellitus with foot ulcer; L97.415 - Non-pressure chronic ulcer of right heel and midfoot with muscle involvement without evidence of necrosis (4) Uncontrolled diabetes mellitus Qualifiers: Diabetes mellitus type: type 2 Glycemic state: with hyperglycemia Qualified Code(s): E11.65 - Type 2 diabetes mellitus with hyperglycemia (5) Hypertension Qualifiers: Hypertension type: unspecified Qualified Code(s): I10 - Essential (primary) hypertension (6) HLD (hyperlipidemia) Qualifiers: Hyperlipidemia type: unspecified Qualified Code(s): E78.5 - Hyperlipidemia, unspecified
[2018-08-22] MEDS: hydrALAZINE 25 MG TABLET PO SCH ×2 (00:30→08:02)
[2018-08-22] MEDS: Clindamycin 900 MG/50 ML 900 MG/50 ML IV.SOLN IVPB SCH (04:16)
[2018-08-22] MEDS: *HR* Heparin 5,000 UNIT/ML VIAL SQ SCH (06:56)
[2018-08-22 07:12] LABS: Calcium 8.5 mg/dL (8.6-10.3); Uric Acid 6.5 mg/dL (2.3-7.6)
[2018-08-22 07:25] LABS: Thyroid Stimulating Hormone 0.107 mcIU/mL (0.340-5.600)
[2018-08-22] MEDS: Insulin LISPRO 300 UNITS/3 ML VIAL SQ SCH ×4 (08:01→13:00)
[2018-08-22] MEDS: amLODIPine 5 MG TABLET PO SCH (08:02)
[2018-08-22] MEDS: Insulin DETEMIR 100 UNIT/ML X5UNITS SQ SCH (08:23)
[2018-08-22] MEDS: Ringers Solution, Lactated 1,000 ML IVC SCH (09:53)
[2018-08-22 10:10] LABS: Complement C3 127 mg/dL (87-200)
--- NOTE | 2018-08-22 10:44 | Discharge Summary ---
- NOTES TO OUTPATIENT PROVIDER Notes to Outpatient Provider: + MRSA - continuation of Clindamycin as outpatient. Recheck renal function in 5-7 days. Repeat TSH or refer to Endocrinology for low TSH - was discharged by Nephrology with labetolol for this reason until the evaluation by Endo. Appears to have non-compliance with all his medications from last primary care provider visit, he should have thorough evaluation of his medications that he takes. Orders not resulted at time of discharge: Pending orders 08/16/18 08:40 Culture,Anaerobic [RM] Routine 08/22/18 06:35 ASIF IgG GODWIN rflx IFA AM 0400 Protein Electrophoresis AM 0400 Vitamin D 25 Hydroxy AM 0400 08/23/18 04:00 BMP [Basic Metabolic Panel] AM 0400 Date of Encounter: 08/22/18 Time of Encounter: 10:43 - Discharge Diagnosis (1) Prepatellar bursitis of right knee Priority: Primary Status: Acute (2) ROXANN (acute kidney injury) Priority: Secondary Status: Acute (3) Diabetic foot ulcer Priority: Secondary Status: Acute Qualifiers: Diabetic foot ulcer location: midfoot Diabetes mellitus type: type 2 Laterality: right Non-pressure ulcer stage: with muscle involvement without evidence of necrosis Qualified Code(s): E11.621 - Type 2 diabetes mellitus with foot ulcer; L97.415 - Non-pressure chronic ulcer of right heel and midfoot with muscle involvement without evidence of necrosis (4) Uncontrolled diabetes mellitus Priority: Secondary Status: Chronic Qualifiers: Diabetes mellitus type: type 2 Glycemic state: with hyperglycemia Qualified Code(s): E11.65 - Type 2 diabetes mellitus with hyperglycemia (5) Hypertension Priority: Secondary Status: Chronic Qualifiers: Hypertension type: unspecified Qualified Code(s): I10 - Essential (primary) hypertension (6) HLD (hyperlipidemia) Priority: Secondary Status: Chronic Qualifiers: Hyperlipidemia type: unspecified Qualified Code(s): E78.5 - Hyperlipidemia, unspecified (7) Nonadherence to medication Priority: Secondary Status: Chronic Hospital course: Mr. 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 Patient presented to the hospital due to drainage from an infection on his right knee. The patient reports about 1 week about he developed a blister on the anterior aspect of the right knee. Blister started to drain a bloody secretion and her decided to go to the ED to be checked. He also report at the stump of the right foot he has seen a serous sanguineous secretion too. CT of right knee showed abscess. He was started on emperic Vancomycin/Zosyn. Podiatry and Infectious Disease were consulted, diagnosed with septic prepatellar bursitis. He underwent I&D of bursa and tolerated procedure. Wound cultures presumptively positive for MRSA. Patient transitioned to clindamycin as he did develop ROXANN from vancomycin and contrast- induced Nephropathy. Nephrology consulted, renal function improved with IV fluids and supportive care. TSH has been persistently low and patient was started on labetolol for that and also uncontrolled hypertension. With renal function improved and patient hemodynamically stable, discharged to finish course of clindamycin, labetolol, hydralazine for BP. To DO: Continue Clinda for + MRSA. Recheck renal function in 5-7 days. Repeat TSH or refer to Endocrinology for low TSH - was discharged by Nephrology with labetolol for this reason until the evaluation by Endo. - Time Spent with Patient Total time spent providing and/or coordinating discharge services: - Discharge Medications Prescriptions: New Labetalol [Trandate] 100 mg PO BID #60 tablet Continued Amlodipine Besylate 10 mg PO DAILY Atorvastatin Calcium 80 mg PO DAILY Non-Formulary Medication 0 each PO DAILY Home Medications: Amlodipine Besylate 10 mg PO DAILY 08/16/18 [History] Atorvastatin Calcium 80 mg PO DAILY 08/16/18 [History] Non-Formulary Medication 0 each PO DAILY 08/16/18 [History] Labetalol [Trandate] 100 mg PO BID #60 tablet 08/22/18 [Rx] Allergies/Adverse Reactions: Allergy/AdvReac Type Severity Reaction Status Date / Time No Known Allergies Allergy Unverified 10/12/16 10:26 Date of admission: 08/17/18 11:18 Primary care physician: Bryant Lawrence DO Consults: 08/15/18 17:33 Consult to Podiatry [CONS] Routine Consulting Provider: [facility] Reason for Consult: diabetic foot ulcer Call Completed: Yes 08/17/18 09:08 Consult to Physical Therapy [CONS] Routine Comment: Evaluate, develop and implement POC Reason for Consult: right foot amputation Does patient have active BEDREST order?: No Is patient medically & hemodynamically stable?: Yes 08/17/18 09:09 Consult to Occupational Therapy [CONS] Routine Comment: Evaluate, develop and implement POC Reason for Consult: right foot amputation Does patient have active BEDREST order?: No Is patient medically & hemodynamically stable?: Yes 08/20/18 14:22 Consult to Nephrology [CONS] Routine Consulting Provider: [facility] [place]/JANNY/NASEEM/ESVIN Reason for Consult: ROXANN Call Completed: Yes Discharging clinician: Christie Alfaro - Constitutional Vitals: Temp Pulse Resp BP Pulse Ox 97.8 F 75 18 115/55 97 08/22/18 06:47 08/22/18 06:47 08/22/18 06:47 08/22/18 06:47 08/22/18 06:47 Exam: General: Alert and oriented, no acute distres Head: NC, AT ENT: MMM Cardiovascular: RRR, normal S1 & S2, no rubs, murmurs or gallops. Lungs: CTA b/l, no wheezes, rales or crackles. Abdomen: soft, non-tender, no rigidity. normal bowel sounds Extremities: no edema in the lower extr b/l. Neurological: No focal neurological abnormalities - Patient Status Disposition: Home, Self-Care Condition: Fair Functional capacity at discharge: wheelchair bound Overall status at discharge: patient is progressing back to baseline - Discharge Instructions Follow Up With: Bryant Lawrence DO [Primary Care Provider] - Additional Instructions: Follow-up appointments: If there is not an appointment listed below, please call your physician and schedule a follow-up appointment. If you have congestive heart failure and your symptoms return, make an appointment with your physician. Medication List: Carry an up to date list of medications you are taking at all time. We have given you an updated medication list including any new medications that you have been prescribed. Please provide that list to your primary provider Symptoms: If your condition changes or you experience any of the following symptoms, notify your physician immediately: Unusual or worsening pain, fever, persistent nausea and vomiting, bleeding, increase in swelling (especially in your legs), sudden weight gain, extreme dizziness, chest pain, increased drainage or redness from a wound or incision. Go to the emergency department if you experience a problem with breathing. Weights: If you have a history of swelling or shortness of breath, weigh yourself daily and notify your physician if you have a weight gain of two or more pounds in one day or 5 or more pounds in a week. If you experience any of the warning signs for stroke: Sudden numbness or weakness of the face, arm or leg; especially on one side of the body, sudden confusion, trouble speaking or understanding, sudden trouble seeing in one or both eyes, sudden trouble walking, dizziness, loss of balance or coordination, sudden sever headache with no cause; Call 911 or go to the emergency room. Stroke is a medical emergency. Some risk factors for stroke: Age, cigarette smoking, diabetes, excessive alcohol consumption, family history, high blood pressure, overweight, physical inactivity, prior stroke, heart attack, diagnosis of carotid artery stenosis or other artery disease. If you smoke, STOP: Smoking or tobacco use significantly increases your risk of heart and lung disease. Your chance of disease greatly increases if you continue to smoke. For more information, call the [place] tobacco quit line for smoking cessation -P UIT-NOW ( ) Wound Care: Daily dressing changes to right foot, alginate, 4x4 and kerlix. - Diet and Activity Activity: resume usual activities as tolerated Diet: advance to your usual diet
[2018-08-22 10:56] VITALS: BP 115/65
--- NOTE | 2018-08-22 12:14 | Physician Discharge Referral ---
Home Health/Hosp Referral Info Transfer to: Home Health Provider in Charge Post Discharge: PCP - Diagnosis (1) Prepatellar bursitis of right knee Priority: Primary Status: Acute (2) ROXANN (acute kidney injury) Priority: Secondary Status: Acute (3) Diabetic foot ulcer Priority: Secondary Status: Acute (4) Uncontrolled diabetes mellitus Priority: Secondary Status: Chronic (5) Hypertension Priority: Secondary Status: Chronic (6) HLD (hyperlipidemia) Priority: Secondary Status: Chronic (7) Nonadherence to medication Priority: Secondary Status: Chronic - Respiratory Orders Smoking Cessation: Smoking cessation has been advised. For more information, call the [place] Tobacco Quit Line at 7-098-TNYKNOW. - Services Needed Following services are medically necessary services: Nursing, Home Health Aide, Physical Therapy, Occupational Therapy Home Care Orders: daily dressing changes on right foot.alginate, 4x4, and kerlex Daily dressing changes on right knee. 4x4 and RODNEY - Transfer Medications Prescriptions: Labetalol [Trandate] 100 mg PO BID #60 tablet Home Medications: Amlodipine Besylate 10 mg PO DAILY 08/16/18 [History] Atorvastatin Calcium 80 mg PO DAILY 08/16/18 [History] Non-Formulary Medication 0 each PO DAILY 08/16/18 [History] Labetalol [Trandate] 100 mg PO BID #60 tablet 08/22/18 [Rx] Allergies/Adverse Reactions: Allergy/AdvReac Type Severity Reaction Status Date / Time No Known Allergies Allergy Unverified 10/12/16 10:26 Certification: Further, I certify that my clinical findings support that this patient is homebound (i.e. absences from home require considerable and taxing effort and are for medical reasons or faith services or infrequently or short duration when for other reasons) because: Homebound Reason: Patient requires assistance of a person or device to safely leave home, Post-surgery restriction and or conditions limit ability to leave home Attestation: My signature below is to certify that this patient is under my care and that I, or nurse practitioner, or a physician's assistant professor of mathematics working with me, has a [id number] encounter with this patient.
[2018-08-25 00:42] LABS: Alpha 2 Globulin (PEP) 0.92 g/dL (0.48-1.05); Beta Globulin (PEP) 0.72 g/dL (0.48-1.10)
[2018-08-25 11:14] LABS: ANA IgG by ELISA NONE DETECTED (None Detected)
[2018-08-25 11:26] LABS: IFE Reflexed NOT DONE
== END 2018-08-22 13:23 | disposition home or self-care (01) | DRG 501 ==
LOC: 3NENU → SUATTDRO 08-17 11:18
PROVIDERS: ADMIT Internal Medicine Nephrology; ATTEND Student in an Organized Health Care Education/Training Program